=== PATIENT | female | born 1965 | race Caucasian/White ===

== ENCOUNTER 2024-02-04 06:43 | Emergency (ER) | payer OTHER, SELFPAY ==
[2024-02-04 06:52] VITALS: BP 192/113
[2024-02-04 07:00] VITALS: BMI 42.8
--- NOTE | 2024-02-04 07:09 | ED.GENMED ---
History of Present Illness
General
Chief Complaint: Flank Pain
Source: patient
Time Seen by Provider: 02/04/24 06:53
History of Present Illness
History of Present Illness:
58yoF with a history of hypertension, type 2 diabetes, and kidney stones presenting with her for evaluation of flank pain. Patient woke up this morning around 5 AM due to severe pain in her left flank. Pain radiates to the left lower
quadrant. Pain is associated with nausea. Symptoms feel identical to her prior kidney stones. She has not taken anything [id number] for her symptoms. She denies any dysuria or hematuria. She does report that she has had some mild
discomfort in her left flank over the past week. No fevers.
Past History
Past History
ED Past Medical History: Other (kidney stones)
ED Past Surgical History: None
Social History
Tobacco: Non-smoker
Living: with family
Phy Exam
Physical Exam
Physical Exam:
Appears uncomfortable due to pain, non-toxic
General Physical Exam
General Presentation: mild distress
General age: appears stated age
General Skin: warm and dry
General Habitus: normal
General Mental: alert
Cardiovascular Exam
Cardiovascular Exam: regular rate/rhythm and no murmur
Pulmonary Exam
Pulmonary Exam: lungs clear, no respiratory distress, no crackles and no wheezing
Gastrointestinal Exam
Gastrointestinal Exam: non tender, soft, non distended and no cva tenderness
Neurological Exam
Neurological Exam: alert
[place] Coma Scale
Eye Opening: Spontaneous
Verbal Response: Oriented
Motor Response: Obeys Commands
GCS Total Score: 15
Skin Exam
Skin Exam: normal color and warm/dry
Course
Orders/Labs/Results
Orders:
Orders
02/04/24 07:08
CT Abd/pel Without Iv Or Oral Urgent
Comment:
Reason For Exam: L flank pain, hx of kidney stones
0.9% Sodium Chloride 1000 ml [Nss] 1,000 ml IV BOLUS
HYDROmorphone [Dilaudid] 0.5 mg IV NOW STA
Ketorolac [Toradol] 15 mg IV NOW STA
Ondansetron Injectable [Zofran] 4 mg IV NOW STA
02/04/24 07:11
Complete Blood Count/With Diff Urgent
Comprehensive Metabolic Panel Urgent
Lipase Urgent
02/04/24 09:11
Urinalysis Reflex To Culture Urgent
Date Specimen was Collected: 02/04/24
Time Specimen was Collected: 09:07
Urine Microscopic Reflex Cult Urgent
Urine Culture Urgent
KOREY Source: U
Specimen Description:
Date Specimen was Collected: 02/04/24
Time Specimen was Collected: 09:07
Abnormal Lab Results
02/04/24 02/04/24
07:11 09:11
MCV 79.8 L fL
(81.0-99.0)
MPV 11.0 H fL
(7.4-10.4)
BUN 19 H mg/dl
(7-17)
Glucose 175 H mg/dl
(70-99)
ALT 37 H U/L
(0-35)
Ur Occult Blood Reflex 4+ A
(Negative)
Leukocyte Esterase Rfl 1+ A
(Negative)
Urine RBC 70-80 A /HPF
(0-2)
Urine Bacteria (Reflex) Few A
(Negative)
02/04/24 07:11
02/04/24 07:11
Vital Signs
Initial and Last Documented VS:
Initial Vital Signs
Pulse Resp BP Pulse Ox
79 22 192/113 96
02/04/24 06:52 02/04/24 06:52 02/04/24 06:52 02/04/24 06:52
Last Documented Vital Signs
Temp Pulse Resp BP Pulse Ox
97.8 F 64 16 158/84 94
02/04/24 07:54 02/04/24 10:15 02/04/24 10:15 02/04/24 10:00 02/04/24 10:15
MDM/Problems Addressed
Differential Diagnosis Includes:
58yoF here with L flank pain that woke her up from sleep this morning. +Nausea. Hx of kidney stones and this feels the same. She is hypertensive with otherwise normal vital signs. She appears uncomfortable on exam. No abdominal or CVA tenderness.
Differential diagnosis includes but is not limited to: kidney stone, UTI, pyelonephritis, doubt but consider AAA
Initial ED plan: Check abdominal labs, UA, and CT abdomen. IV Toradol, Dilaudid, Zofran, and fluid bolus for symptoms.
*Critical Care Note
Total Time (30-74mins, 75-104mins- exclusive of procedures): Not Applicable
Update Note
Update Note:
CT shows a 9 x 6mm calculus in the mid L ureter with hydronephrosis. Renal function is stable. No overt signs of infection on urinalysis. Pain has completely resolved on multiple reassessments. She is stable for discharge. Supportive care discussed.
Prescriptions provided for Flomax, oxycodone, and Zofran. Advised close f/u with urology. Strict ED return precautions discussed. She was discharged in stable condition.
ED Attending Note
-
Portions of this chart may have been created with voice recognition software.� Occasional wrong word or��sound alike� substitutions may have occurred due to the inherent limitations of voice recognition software.
Discharge Plan
Departure
Patient Disposition: Home (Routine Discharge)
Date of Disposition: 02/04/24
Time of Disposition: 10:44
Patient with high blood pressure during this ER visit?: Yes
Discharge Problem:
Left ureteral calculus
Instructions: Kidney Stones (DC), How to Strain Your Urine
Prescriptions:
New
tamsulosin [Flomax] 0.4 mg capsule
0.4 mg PO DAILY Qty: 10 0RF
ondansetron 4 mg tablet,disintegrating
4 mg PO Q6H PRN (Reason: nausea and vomiting) Qty: 20 0RF
oxycodone 5 mg tablet
5 mg PO Q6H PRN (Reason: Pain) Qty: 12 0RF
No Action
hydrochlorothiazide 12.5 MG capsule
25 mg PO DAILY
metoprolol tartrate 25 MG tablet
25 mg PO DAILY
hydrocodone-acetaminophen 1 TABLET tablet
1 tab PO Q4HPRN PRN (Reason: pain) Qty: 15 0RF
tamsulosin 0.4 MG capsule
0.4 mg PO DAILY Qty: 10 0RF
oxycodone-acetaminophen 5 MG/325 MG tablet
1 tab PO Q6HPRN PRN (Reason: pain) Qty: 10 0RF
tamsulosin 0.4 MG capsule
0.4 mg PO DAILY Qty: 7 0RF
diclofenac sodium 75 MG tablet,delayed release (DR/EC)
75 mg PO BID Qty: 10 0RF
tamsulosin 0.4 MG capsule
0.4 mg PO DAILY Qty: 6 0RF
diclofenac sodium 75 MG tablet,delayed release (DR/EC)
75 mg PO BID Qty: 10 0RF
famotidine 40 MG tablet
40 mg PO BID Qty: 10 0RF
prednisone 50 MG tablet
50 mg PO DAILY Qty: 5 0RF
ondansetron 4 mg tablet,disintegrating
4 mg PO Q8H Qty: 10 0RF
tamsulosin [Flomax] 0.4 mg capsule
0.4 mg PO DAILY Qty: 14 0RF
oxycodone-acetaminophen [Percocet] 5-325 mg tablet
1 - 2 tab PO Q6HPRN PRN (Reason: pain) Qty: 12 0RF
Referrals:
Scott Sumner MD [Active] -
Maria G Samuels MD [Family Provider] -
Activity Restrictions/Additional Instructions:
Drink plenty of fluids. Strain your urine and take Flomax until stone has passed.
Take Tylenol 650mg and ibuprofen 600mg every 6 hours as needed for pain. Take oxycodone only as needed for severe breakthrough pain.
Please call today to schedule a follow-up with urology. Return to the ER with any worsening symptoms, uncontrolled pain, fevers.
Interventions
Interventions:
*Risk Screen - Suicide Last Done: 02/04/24 06:47
*General Assessment Last Done: 02/04/24 06:47
*Neglect/Abuse Screening Last Done: 02/04/24 06:47
ED- Fall Risk Assessment Last Done: 02/04/24 07:03
*ED COVID-19 Vaccine History Last Done: 02/04/24 06:47
*Nursing Disposition Last Done: 02/04/24 11:08
IJ-Fvlqhh-Skdeglrscc Assessment Last Done: 02/04/24 07:03
ED-Female Genitourinary Assessment Last Done: 02/04/24 07:03
Discharge Date and Time
Discharge Date/Time: 02/04/24 11:09
Print Language: [place]
[2024-02-04 07:10] VITALS: BP 157/108
[2024-02-04] MEDS: NSS 1000 IV (07:14)
[2024-02-04] MEDS: TORADOL 15 MG IV (07:15)
[2024-02-04] MEDS: ZOFRAN 4 MG IV (07:15)
[2024-02-04] MEDS: DILAUDID 0.5 MG IV (07:16)
[2024-02-04 07:28] LABS: % Basophils 0.7 % (0-2); % Eosinophils 3.2 % (0-6); % Immature Granulocytes 0.4 % (0-0.5); % Lymphocytes 28.2 % (20.5-51.1); % Monocytes 6.7 % (1.7-9.3); % Neutrophils 60.8 % (42.2-75.2); Absolute Basophils 0.1 10^3/uL (0-0.2); Absolute Eosinophils 0.2 10^3/uL (0-0.7); Absolute Monocytes 0.5 10^3/uL (0.1-0.6); Absolute Neutrophils 4.3 10^3/uL (1.4-6.5); Hematocrit 41.6 % (37.0-47.0); Hemoglobin 15.1 g/dL (12.0-16.0); Mean Corp Hgb Conc. 36.3 g/dL (33.0-37.0); Mean Corpuscular Volume 79.8 fL (81.0-99.0); Nucleated Red Blood Cells % 0 %; Platelet Count 236 10^3/uL (130-400); Red Blood Cell Count 5.21 10^6/uL (4.20-5.40); Red Cell Dist. Width 12.1 % (11.5-14.5); White Blood Cell Count 7.1 10^3/uL (4.8-10.8)
[2024-02-04 07:30] LABS: ALT (SGPT) 37 U/L (0-35); AST (SGOT) 29 U/L (14-36); Alkaline Phosphatase 78 U/L (38-126); Blood Urea Nitrogen 19 mg/dl (7-17); Calcium 9.3 mg/dl (8.4-10.2); Carbon Dioxide 24 mmol/L (22-30); Chloride 103 mmol/L (98-107); Estimated Creatinine Clearance 118 ml/min; Glucose 175 mg/dl (70-99); Lipase 128 U/L (23-300); Potassium 3.6 mmol/L (3.5-5.1); Sodium 139 mmol/L (135-145); Total Bilirubin 0.9 mg/dl (0.2-1.3); Total Protein 6.4 g/dl (6.3-8.2); eGFR > 60.00
[2024-02-04 07:52] VITALS: BP 162/78
[2024-02-04 09:36] LABS: Urine Albumin Trace (Neg - Trace); Urine Bilirubin Negative (Negative); Urine Character Very Cloudy (Clear); Urine Color Brown; Urine Glucose Negative (Negative); Urine Ketone Negative (Negative); Urine Leukocyte 1+ (Negative); Urine Nitrite Negative (Negative); Urine Occult Blood 4+ (Negative); Urine Urobilinogen Negative (Neg - 1+)
[2024-02-04 10:00] VITALS: BP 158/84
[2024-02-04 10:36] LABS: Urine Bacteria Few (Negative); Urine Red Blood Cell 70-80 /HPF (0-2); Urine Squamous Cell 26-30 /LPF (Few); Urine White Cell 0-2 /HPF (0-5)
== END 2024-02-04 11:09 | disposition home or self-care (01) ==
LOC: EMR 06:43
PROVIDERS: Physician Assistant; EMERGENCY PHYSICIAN Student in an Organized Health Care Education/Training Program; FAMILY PHYSICIAN Family Medicine
DX: N13.2 Hydronephrosis with renal and ureteral calculous obstruction (principal); I10 Essential (primary) hypertension; E11.9 Type 2 diabetes mellitus without complications
CPT/HCPCS: 99284; 96374; 96375 ×2; 96361; 74176; 80053; 81003; 81015; 83690; 85025; 87086

== ENCOUNTER 2024-02-18 06:11 | Day surgery (SDC) | payer OTHER, SELFPAY ==
[2024-02-16 12:22] VITALS: BMI 41.8
[2024-02-18] VITALS (9 sets, daily range): BP systolic 137–170; BP diastolic 77–96; BMI 41.8
[2024-02-18 06:59] LABS: Glucose - Point of Care 129 mg/dl (70-99)
[2024-02-18] MEDS: NORMOSOL-R/PLASMALYTE-A 1000 IV (06:59)
[2024-02-18] MEDS: Pyridium 200 MG PO (06:59)
[2024-02-18 08:15] LABS: Glucose - Point of Care 125 mg/dl (70-99)
[2024-02-21 15:09] LABS: Stone Analysis Mass 11 mg
== END 2024-02-18 09:49 | disposition home or self-care (01) ==
LOC: SDS 06:11
PROVIDERS: ATTENDING PHYSICIAN Specialist; FAMILY PHYSICIAN Family Medicine
PROC: 0T778DZ Dilation of Left Ureter with Intraluminal Device, Via Natural or Artificial Opening Endoscopic (ICD-10-PCS; 2024-02-18)
PROC: 0TC78ZZ Extirpation of Matter from Left Ureter, Via Natural or Artificial Opening Endoscopic (ICD-10-PCS; 2024-02-18)
DX: N13.2 Hydronephrosis with renal and ureteral calculous obstruction (principal)
CPT/HCPCS: 52356; 36415; 74018; 76000; 82365; 82962; 93005; C2617

== ENCOUNTER 2024-03-25 05:40 | Emergency (ER) | payer OTHER, SELFPAY ==
[2024-03-25 05:55] VITALS: BP 174/103
[2024-03-25 07:16] LABS: % Basophils 0.5 % (0-2); % Immature Granulocytes 0.5 % (0-0.5); % Lymphocytes 14.7 % (20.5-51.1); % Monocytes 5.3 % (1.7-9.3); Absolute Eosinophils 0.1 10^3/uL (0-0.7); Absolute Lymphocytes 1.3 10^3/uL (1.2-3.4); Absolute Monocytes 0.5 10^3/uL (0.1-0.6); Absolute Neutrophils 6.8 10^3/uL (1.4-6.5); Hematocrit 42.5 % (37.0-47.0); Hemoglobin 15.3 g/dL (12.0-16.0); Mean Corpuscular Hgb 28.8 pg (27.0-31.0); Mean Platelet Volume 10.9 fL (7.4-10.4); Nucleated Red Blood Cells % 0 %; Platelet Count 226 10^3/uL (130-400); Red Blood Cell Count 5.31 10^6/uL (4.20-5.40); Red Cell Dist. Width 12.1 % (11.5-14.5); White Blood Cell Count 8.7 10^3/uL (4.8-10.8)
[2024-03-25 07:42] LABS: ALT (SGPT) 43 U/L (0-35); AST (SGOT) 33 U/L (14-36); Albumin 4.3 g/dl (3.5-5.0); Alkaline Phosphatase 61 U/L (38-126); Blood Urea Nitrogen 15 mg/dl (7-17); Calcium 9.6 mg/dl (8.4-10.2); Carbon Dioxide 24 mmol/L (22-30); Chloride 102 mmol/L (98-107); Glucose 170 mg/dl (70-99); Potassium 3.7 mmol/L (3.5-5.1); Sodium 140 mmol/L (135-145); Total Bilirubin 0.9 mg/dl (0.2-1.3); Total Protein 6.8 g/dl (6.3-8.2); eGFR > 60.00
[2024-03-25] MEDS: ANTIVERT 25 MG PO (08:52)
[2024-03-25 08:53] VITALS: BMI 42.4
[2024-03-25 08:55] VITALS: BP 155/92
[2024-03-25] MEDS: NSS 1000 IV (09:02)
[2024-03-25 09:13] VITALS: BP 160/94
[2024-03-25 09:33] VITALS: BP 160/94; O2SAT 95
--- NOTE | 2024-03-25 11:05 | ED.GENMED ---
History of Present Illness
General
Chief Complaint: Dizziness
Source: patient
Exam Limitations: none
Time Seen by Provider: 03/25/24 08:00
Nursing documentation reviewed up to this point in time: agreed with
History of Present Illness
History of Present Illness:
58-year-old female past medical history of hypertension GERD diabetes presenting to the emergency department today with concerns of initial nausea over the past 2 days and then room spinning dizziness today mainly getting out of bed seems to
improved with rest. Denies numbness weakness changes in vision has had ongoing nausea and worsening nausea with the dizziness.
Past History
Past History
ED Past Medical History: Other (kidney stones)
ED Past Surgical History: None
Social History
Tobacco: Non-smoker
Living: with family
Review of Systems
Review of Systems
Allergies reviewed?: Yes
All Other Systems: ROS reviewed and negative except as documented in HPI and ROS
Phy Exam
Physical Exam
Physical Exam:
GENERAL: Alert , in no apparent distress
EYE: pupils equal and reactive
NECK: Supple, no significant adenopathy.
ENT: o/p clr, mmm.
CARDIAC: Regular rate and rhythm .
LUNGS: Clear breath sounds bilaterally, no acute respiratory distress, no wheezes/rales/rhonchi
ABDOMEN: Soft, without focal tenderness, no r/g, no cvat
NEUROLOGICAL: Alert and oriented, no focal neuro deficits 5 out of 5 upper and lower extremity strength normal sensation when palpating bilaterally. Normal plantar nose and [id number]
SKIN: Warm and dry, skin intact.
MUSCULOSKELETAL: No edema, well perfused.
PSYCH: Normal and appropriate interaction.
Course
Orders/Labs/Results
Orders:
Orders
03/25/24 06:01
Electrocardiogram (*1) Urgent
Reason for Study: Vertigo / Dizzy
Cardiology Consult: Unknown
EKG- Treatment ONCE
03/25/24 06:51
Complete Blood Count/With Diff Urgent
Comprehensive Metabolic Panel Urgent
03/25/24 08:23
Meclizine [Antivert] 25 mg PO NOW STA
Pt Eval And Treat Urgent
Treatment: Vestibular
Activity Level: Ambulate
03/25/24 08:24
0.9% Sodium Chloride 1000 ml [Nss] 1,000 ml IV BOLUS
Abnormal Lab Results
03/25/24
06:51
MCV 80.0 L fL
(81.0-99.0)
MPV 10.9 H fL
(7.4-10.4)
Absolute Neuts (auto) 6.8 H 10^3/uL
(1.4-6.5)
Neutrophils % 78.0 H %
(42.2-75.2)
Lymphocytes % 14.7 L %
(20.5-51.1)
Glucose 170 H mg/dl
(70-99)
ALT 43 H U/L
(0-35)
03/25/24 06:51
03/25/24 06:51
Vital Signs
Initial and Last Documented VS:
Initial Vital Signs
Temp Pulse Resp BP Pulse Ox
97.9 F 68 20 174/103 94
03/25/24 05:55 03/25/24 05:55 03/25/24 05:55 03/25/24 05:55 03/25/24 05:55
Last Documented Vital Signs
Temp Pulse Resp BP Pulse Ox
97.9 F 66 20 160/94 93
03/25/24 05:55 03/25/24 08:55 03/25/24 05:55 03/25/24 09:13 03/25/24 08:55
MDM/Problems Addressed
MDM/Problems Addressed:
58-year-old female presenting to the emergency department today with concerns of recently dizziness this morning has had nausea over the past 2 days. Also has felt some fullness and swelling to her ear and sinuses. Upon arrival initially
hypertensive otherwise vital signs are normal afebrile blood pressure improving here after receiving meclizine. Labs without emergent initial findings other than a slight left shift however patient without evidence of any emergent infections at
this point. Here without evidence of obvious bacterial infection or otitis media. EKG normal. Patient assessed by PT without any emergent findings able to ambulate well. Patient with resolution of symptoms after receiving meclizine. Symptoms
seem to be improving and were never at rest. Symptoms most consistent with peripheral vertigo plan for symptomatic treatment and close outpatient follow-up. Return precautions given.
*Critical Care Note
Total Time (30-74mins, 75-104mins- exclusive of procedures): Not Applicable
ED Attending Note
-
Portions of this chart may have been created with voice recognition software.� Occasional wrong word or��sound alike� substitutions may have occurred due to the inherent limitations of voice recognition software.
Discharge Plan
Departure
Patient Disposition: Home (Routine Discharge)
Date of Disposition: 03/25/24
Time of Disposition: 11:07
Patient with high blood pressure during this ER visit?: No
Condition: Good
Covid-19: Not Applicable
Discharge Problem:
Vertigo
Instructions: Vertigo (a Type of Dizziness) (DC)
Prescriptions:
New
meclizine 25 mg tablet
25 mg PO BID PRN (Reason: dizziness) Qty: 7 0RF
No Action
ondansetron HCl [Zofran] 4 mg Tablet
4 mg PO Q6H PRN (Reason: nausea)
hydrochlorothiazide 25 mg Tablet
25 mg PO HS
metoprolol succinate 25 mg Tablet Extended Release 24 Hr
12.5 mg PO DAILY
metoprolol succinate 25 mg Tablet Extended Release 24 Hr
25 mg PO HS
metformin 500 mg Tablet Extended Release 24 Hr
500 mg PO BID
oxycodone 5 mg Tablet
5 mg PO Q6H PRN (Reason: pain)
multivitamin Tablet
1 tab PO DAILY
chromium picolinate 200 mcg Tablet
200 mcg PO DAILY
vitamin B complex Tablet
1 tab PO DAILY
cholecalciferol (vitamin D3) [Vitamin D3] 50 mcg (2,000 unit) Tablet
50 mcg PO DAILY
Referrals:
Yung Ramesh MD [Active] - Follow up in 5-7 days
Maria G Samuels MD [Family Provider] -
Activity Restrictions/Additional Instructions:
You came to the emergency department today with concerns of dizziness. Here you had a reassuring assessment. Please feel close with the ENT and take meclizine as needed. Return to the emergency department for any worsening, new or concerning
symptoms.
Interventions
Interventions:
*Risk Screen - Suicide Last Done: 03/25/24 05:55
*General Assessment Last Done: 03/25/24 05:55
*Neglect/Abuse Screening Last Done: 03/25/24 05:55
ED- Fall Risk Assessment Last Done: 03/25/24 05:55
*ED COVID-19 Vaccine History Last Done: 03/25/24 05:55
ED- Neurological Assessment Last Done: 03/25/24 09:44
ED Swallowing Screen Last Done: 03/25/24 09:43
Discharge Date and Time
Print Language: [place]
[2024-03-25] MEDS: DECADRON 10 MG PO (11:46)
[2024-03-25 11:48] VITALS: BP 162/94
== END 2024-03-25 12:02 | disposition home or self-care (01) ==
LOC: EMR 05:40
PROVIDERS: EMERGENCY PHYSICIAN Emergency Medicine; FAMILY PHYSICIAN Family Medicine
DX: R42 Dizziness and giddiness (principal); I10 Essential (primary) hypertension; E11.9 Type 2 diabetes mellitus without complications; K21.9 Gastro-esophageal reflux disease without esophagitis; Z87.442 Personal history of urinary calculi
CPT/HCPCS: 99283; 80053; 85025; 93005

== ENCOUNTER 2024-08-16 06:20 | Day surgery (SDC) | payer OTHER, SELFPAY ==
[2024-08-16 10:42] LABS: Glucose - Point of Care 130 mg/dl (70-99)
== END 2024-08-16 12:16 | disposition home or self-care (01) ==
LOC: GI 06:20
PROVIDERS: ATTENDING PHYSICIAN Internal Medicine
DX: Z12.11 Encounter for screening for malignant neoplasm of colon (principal); R19.5 Other fecal abnormalities; K64.8 Other hemorrhoids; D12.0 Benign neoplasm of cecum; K63.5 Polyp of colon; K62.1 Rectal polyp
CPT/HCPCS: 45385; 45380; 88305; 82962